=== PATIENT | male | born 1950 | race Caucasian/White ===

== ENCOUNTER → 2018-04-21 | Outpatient (CLI) | payer OTHER, MEDICARE ==
[~2018-04-21] MED LIST: GADOBUTROL 10 ML VIAL IVP ONE
== END ==
LOC: FIMAGING 12:32
DX: N42.89 Other specified disorders of prostate (principal); N41.9 Inflammatory disease of prostate, unspecified
CPT/HCPCS: 72197; 76377; A9585; 82565-PO